=== PATIENT | male | born 1950 | race Caucasian/White ===

== ENCOUNTER 2024-05-18 06:27 | Day surgery (SDC) | payer MEDICARE ==
[2024-05-08 15:13] LABS: BASOPHILS # (AUTO) 0.1 X10'3 (0-0.2); BASOPHILS % (AUTO) 0.8 % (0-1); EOSINOPHILS # (AUTO) 0.1 X10'3 (0-0.9); EOSINOPHILS % (AUTO) 0.8 % (0-6); LYMPHOCYTES # (AUTO) 2.6 X10'3 (1.1-4.8); LYMPHOCYTES % (AUTO) 21.5 % (21-51); MEAN CORPUSCULAR HEMOGLOBIN 33.2 PG (27.0-31.0); MEAN CORPUSCULAR HGB CONC 34.7 g/dL (33.0-36.5); MEAN CORPUSCULAR VOLUME 95.8 FL (78-98); MEAN PLATELET VOLUME 9.8 FL (7.4-10.4); MONOCYTES # (AUTO) 0.8 X10'3 (0-0.9); MONOCYTES % (AUTO) 6.5 % (2-12); NEUTROPHILS # (AUTO) 8.4 X10'3 (1.8-7.7); NEUTROPHILS % (AUTO) 70.4 % (42-75); PRE OP HEMATOCRIT 41.4 % (42.0-52.0); PRE OP HEMOGLOBIN 14.3 g/dL (14.0-17.9); PRE OP PLATELET COUNT 189 X10'3 (140-440); PRE OP WHITE BLOOD COUNT 11.9 10'3 (4.8-10.8); RED BLOOD COUNT 4.32 X10'6 (4.70-6.10); RED CELL DISTRIBUTION WIDTH 12.6 % (11.5-14.5)
[2024-05-08 15:21] LABS: ALBUMIN 4.3 G/DL (3.4-5.0); ALBUMIN/GLOBULIN RATIO 1.2 (1.1-1.5); ALKALINE PHOSPHATASE 68 IU/L (46-116); BLOOD UREA NITROGEN 16 MG/DL (7-18); BUN/CREATININE RATIO 14.5 (10.0-20.0); CALCIUM 8.7 MG/DL (8.5-10.1); CHLORIDE 105 MMOL/L (99-107); PRE OP ALT 51 U/L (30-65); PRE OP ANION GAP 7 (8-16); PRE OP AST 25 U/L (10-37); PRE OP BILIRUB, TOTAL 0.6 MG/DL (0.0-1.0); PRE OP GLUCOSE 106 MG/DL (70-104); PRE OP POTASSIUM 4.7 MMOL/L (3.4-5.1); PRE OP SODIUM 140 MMOL/L (135-145); TOTAL CARBON DIOXIDE 27.9 MMOL/L (24-32); TOTAL PROTEIN 7.9 G/DL (6.4-8.2); eGFR 65 ML/MIN
[~2024-05-18] VITALS: Ht 180.3 cm; Wt 88.3 kg
[2024-05-18] VITALS (8 sets, daily range): BP systolic 97–124; BP diastolic 53–70; PULSE 62–66; RESP 9–16; TEMP 96–97.3; O2SAT 91–100
[2024-05-18] MEDS: ceFAZolin 2gm in dextrose, iso 50 ML IV ONE (05:30)
[~2024-05-18 06:27] MED LIST: ALPR-149 PO; AMIO200T27 PO; ASPI-1071 PO; ATOR20TA66 PO; CLOP75TA33 PO; CYAN250010 PO; DOCUMENT DATE & TIME OF BETA-BLOCKER PO ONE; DONE10TA19 PO; FOLI1TAB27 PO; LOSA-415 PO; METO-411 PO; MEXI150C PO; SPIR25TA5 PO; UBID100T7 PO
[2024-05-18] MEDS ORDERED: BUPIVAcaine 2.5mg/ml inj 50ml vial (contains preservative) ONE (06:56)
[2024-05-18] MEDS ORDERED: LIDOcaine 2% (20mg/ml) 5ml vial ONE (06:56)
[2024-05-18] MEDS: famotidine 20mg tablet PO ONE (07:10)
[2024-05-18] MEDS: ringers solution, lacted 1,000 ML IV SCH (07:11)
[2024-05-18] MEDS ORDERED: ringers solution, lacted 1,000 ML IV SCH (08:05)
[2024-05-18] MEDS ORDERED: morphine 2 MG/ML inj. syringe IV PRN (08:05)
[2024-05-18] MEDS ORDERED: fentaNYL/PF 50MCG/1 ML 2ML syringe IV PRN ×2 (08:05)
[2024-05-18] MEDS ORDERED: ondansetron/PF 4mg/2ml inj IV PRN (08:05)
[2024-05-18] MEDS ORDERED: hydrALAZINE 20mg/ml inj. IV PRN (08:05)
[2024-05-18] MEDS ORDERED: morphine 4 MG/ML inj SYRINge IV PRN (08:05)
[2024-05-18] MEDS ORDERED: labetalol 20mg/4ml (5mg/ml) syringe IV PRN (08:05)
[2024-05-18] MEDS ORDERED: midazolam 1 mg/ML 2ml injection ONE (09:13)
[2024-05-18] MEDS ORDERED: LIDOcaine 1%/PF 5ML 10 MG/ML VIAL ONE ×2 (09:13→09:14)
[2024-05-18] MEDS ORDERED: fentaNYL/PF 50MCG/1 ML 2ML syringe ONE (09:13)
[2024-05-18] MEDS ORDERED: LIDOcaine 0.5% (5mg/ml) 50ml vial ONE (09:13)
[2024-05-18] MEDS ORDERED: ketorolac trometh 30MG/ML vial 30 MG/ML VIAL ONE (09:14)
[2024-05-18] MEDS ORDERED: propofol 10mg/ml 20ml vial IV ONE (09:25)
== END 2024-05-18 11:12 | disposition home or self-care (01) ==
LOC: PAS 06:27
PROVIDERS: ATTEND Orthopaedic Surgery Hand Surgery
DX: M18.12 Unilateral primary osteoarthritis of first carpometacarpal joint, left hand (principal); I10 Essential (primary) hypertension; Z87.891 Personal history of nicotine dependence; Z79.02 Long term (current) use of antithrombotics/antiplatelets; Z79.82 Long term (current) use of aspirin; Z79.891 Long term (current) use of opiate analgesic; Z79.899 Other long term (current) drug therapy; Z95.1 Presence of aortocoronary bypass graft; Z95.4 Presence of other heart-valve replacement; Z98.890 Other specified postprocedural states; Z82.49 Family history of ischemic heart disease and other diseases of the circulatory system
CPT/HCPCS: 25310; 25447; 36415; 80053; 82948; 85025; A4215; A4618; A6258; A6449; J0690; J1885; J2003; J2250; J2704; J3010; J3490; J7030; J7120; Z7506; Z7512; Z7610